=== PATIENT | female | born 1985 | race Caucasian/White ===

== ENCOUNTER 2019-03-06 08:12 | Emergency (ER) | payer OTHER ==
[~2019-03-06] VITALS: Ht 152.4 cm; Wt 116.1 kg
[2019-03-06] MEDS ORDERED: HYDCOR10 PO (08:28)
[2019-03-06] MEDS ORDERED: ABILIFY MYCITE2 MG (08:29)
[2019-03-06] MEDS ORDERED: Cymbalta20 MG (08:30)
[2019-03-06] MEDS ORDERED: Bactrim Ds Tab1 EACH PO (08:39)
== END 2019-03-06 08:54 | disposition home or self-care (01) ==
LOC: ER 08:12
DX: L02.416 Cutaneous abscess of left lower limb (principal); F17.200 Nicotine dependence, unspecified, uncomplicated; Z79.899 Other long term (current) drug therapy
CPT/HCPCS: 99282